=== PATIENT | female | born 1935 | race Caucasian/White ===

== ENCOUNTER 2017-08-08 10:54 | Inpatient (IN) | payer OTHER, BC ==
[~2017-08-08] VITALS: Ht 160 cm; Wt 100.8 kg
[~2017-08-08 10:54] MED LIST: CALCIUM500 M4 PO; CATAPRES0.1 MG PO; CENTRUM SILVER1 EAC4 PO; COUMADIN PO; Calan SR,Covera HS,I PO; Coumadin dosing per PO; DYAZIDE, MA1 CAPSULE PO; Dyazide, Maxzide 37. PO; ENDOCET 5-3251 EACH PO; FISH OIL 1,0001 EACH PO; FISH OIL 1,2001 EAC4 PO; OSTEO BI-FLEX1 EAC1 PO; Oyst-Cal D, Oscal W/ PO; PEPCID40 MG PO; PROTONIX40 MG PO; SENOKOT S,PE1 TABLET PO; Tylenol Regular Stre PO; VERAPAMIL HCL240 MG PO; XARELTO20 MG PO; ZOFRAN ODT4 MG PO
[2017-08-08 11:21] LABS: BASOPHIL (%) 0.2 % (0-1); EOSINOPHIL (%) 0.3 % (0-5); EOSINOPHIL COUNT 0.1 K/uL (0-0.3); HEMOGLOBIN 13.7 G/DL (11.9-15.5); IMMATURE GRANULOCYTE (%) 0.3 % (0.0-0.7); LYMPHOCYTE (%) 6.5 % (15-42); LYMPHOCYTE COUNT 1.1 K/uL (1.0-2.8); MCH 28.9 PG (29.0-34.0); MCHC 31.9 G/DL (30.0-36.0); MCV 90.7 FL (83-99); MONOCYTE (%) 5.2 % (3-12); MONOCYTE COUNT 0.9 K/uL (0-0.8); NEUTROPHIL (%) 87.5 % (45-76); PLATELET COUNT 269 K/uL (156-360); RBC DIS.WIDTH-CV 15.2 % (11.8-14.6); RBC DIS.WIDTH-SD 50.7 % (39-53); RED BLOOD COUNT 4.74 M/uL (3.80-5.20); WHITE BLOOD COUNT 17.2 K/uL (4.1-10.2)
[2017-08-08 11:26] LABS: INTER. NORMALIZED RATIO 1.3
[2017-08-08 11:53] LABS: TROP-I INTERPRETATION NEGATIVE
[2017-08-08 11:55] LABS: ALBUMIN 4.2 G/DL (3.2-4.8); ALKALINE PHOSPHATASE 64 IU/L (3-129); ALT (GPT) 23 IU/L (3-49); AST (GOT) 33 IU/L (2-34); CHLORIDE 105 MEQ/L (99-109); CREATININE 0.9 MG/DL (0.6-1.3); GFR ESTIMATE (CALCULATED) > 59 mL/min/; GLUCOSE 141 mg/dL (70-99); MAGNESIUM 1.9 mg/dl (1.3-2.7); POTASSIUM 4.1 MEQ/L (3.7-5.4); SODIUM 142 MEQ/L (136-147); TOTAL BILIRUBIN 1.2 MG/DL (0.0-1.0); UREA NITROGEN (BUN) 16 mg/dL (9-23)
[2017-08-08] MEDS ORDERED: DILTIAZEM 24HR360 M1 PO (13:12)
[2017-08-08] MEDS ORDERED: CARDIZEM60 MG PO (13:13)
[2017-08-08] MEDS ORDERED: LASIX20 MG PO (13:14)
[2017-08-08 14:55] VITALS: BP 138/80
[2017-08-08 16:57] VITALS: BP 148/97
[2017-08-08 18:07] LABS: TROP-I INTERPRETATION NEGATIVE; TROPONIN-I 0.13 ng/mL (0.0-0.30)
[2017-08-08 19:00] VITALS: BP 149/92
[2017-08-08 23:00] VITALS: BP 127/92
[2017-08-09] VITALS (7 sets, daily range): BP systolic 123–175; BP diastolic 62–93
[2017-08-09 05:22] LABS: HEMATOCRIT 33.8 % (36.0-46.0); MCH 29.6 PG (29.0-34.0); MCHC 32.8 G/DL (30.0-36.0); MCV 90.1 FL (83-99); RBC DIS.WIDTH-CV 15.4 % (11.8-14.6); RBC DIS.WIDTH-SD 51.2 % (39-53)
[2017-08-09 05:23] LABS: HEMOGLOBIN 11.1 G/DL (11.9-15.5); RED BLOOD COUNT 3.75 M/uL (3.80-5.20)
[2017-08-09 05:24] LABS: BASOPHIL (%) 0.2 % (0-1); EOSINOPHIL (%) 0.4 % (0-5); EOSINOPHIL COUNT 0.1 K/uL (0-0.3); IMMATURE GRANULOCYTE (%) 0.6 % (0.0-0.7); LYMPHOCYTE COUNT 0.8 K/uL (1.0-2.8); MONOCYTE (%) 5.9 % (3-12); MONOCYTE COUNT 0.8 K/uL (0-0.8); NEUTROPHIL (%) 86.9 % (45-76); NEUTROPHIL COUNT 12.1 K/uL (1.8-6.4)
[2017-08-09 06:09] LABS: CHLORIDE 107 MEQ/L (99-109); CREATININE 0.9 MG/DL (0.6-1.3); GFR ESTIMATE (CALCULATED) > 59 mL/min/; GLUCOSE 114 mg/dL (70-99); POTASSIUM 3.3 MEQ/L (3.7-5.4); SODIUM 145 MEQ/L (136-147); UREA NITROGEN (BUN) 16 mg/dL (9-23)
[2017-08-09 06:38] LABS: PLATELET CLUMPS PRESENT - PLATELET COUNT APPEARS ADQ.; PLATELET COUNT UNABLE TO REPORT K/uL (156-360)
[2017-08-09 08:37] LABS: TROP-I INTERPRETATION NEGATIVE; TROPONIN-I 0.15 ng/mL (0.0-0.30)
[2017-08-10 03:00] VITALS: BP 168/78
[2017-08-10 03:30] VITALS: BP 169/78
[2017-08-10 08:50] LABS: THYROTROPIN (TSH) 2.5 MIU/L (0.4-5.5)
[2017-08-10 08:56] VITALS: BP 162/78
[2017-08-10 09:32] LABS: HEMOGLOBIN 11.4 G/DL (11.9-15.5); MCH 28.6 PG (29.0-34.0); MCHC 30.8 G/DL (30.0-36.0); RBC DIS.WIDTH-CV 15.3 % (11.8-14.6); RBC DIS.WIDTH-SD 52.2 % (39-53); RED BLOOD COUNT 3.98 M/uL (3.80-5.20); WHITE BLOOD COUNT 9.6 K/uL (4.1-10.2)
[2017-08-10 10:06] LABS: CHLORIDE 105 MEQ/L (99-109); CREATININE 0.8 MG/DL (0.6-1.3); GFR ESTIMATE (CALCULATED) > 59 mL/min/; GLUCOSE 151 mg/dL (70-99); SODIUM 142 MEQ/L (136-147); UREA NITROGEN (BUN) 17 mg/dL (9-23)
[2017-08-10 10:17] LABS: PLATELET COUNT 207 K/uL (156-360)
[2017-08-10 12:27] VITALS: BP 141/79
[2017-08-10 15:25] VITALS: BP 141/87
[2017-08-10 21:35] VITALS: BP 161/84
[2017-08-11 00:55] VITALS: BP 129/75
[2017-08-11 04:00] VITALS: BP 131/65
[2017-08-11 05:16] LABS: HEMATOCRIT 34.4 % (36.0-46.0); HEMOGLOBIN 10.7 G/DL (11.9-15.5); MCH 28.2 PG (29.0-34.0); MCHC 31.1 G/DL (30.0-36.0); MCV 90.8 FL (83-99); PLATELET COUNT 208 K/uL (156-360); RBC DIS.WIDTH-CV 14.9 % (11.8-14.6); RBC DIS.WIDTH-SD 49.8 % (39-53); RED BLOOD COUNT 3.79 M/uL (3.80-5.20); WHITE BLOOD COUNT 8.4 K/uL (4.1-10.2)
[2017-08-11 06:02] LABS: CHLORIDE 106 MEQ/L (99-109); CREATININE 0.8 MG/DL (0.6-1.3); GFR ESTIMATE (CALCULATED) > 59 mL/min/; POTASSIUM 3.7 MEQ/L (3.7-5.4); SODIUM 141 MEQ/L (136-147); UREA NITROGEN (BUN) 17 mg/dL (9-23)
[2017-08-11 06:03] LABS: GLUCOSE 106 mg/dL (70-99)
[2017-08-11 09:12] VITALS: BP 148/63
[2017-08-11 11:00] VITALS: BP 148/82
[2017-08-11 17:37] VITALS: BP 152/78
[2017-08-11 20:05] VITALS: BP 142/72
[2017-08-12 01:31] VITALS: BP 138/76
[2017-08-12 04:20] VITALS: BP 139/73
[2017-08-12 05:08] LABS: HEMATOCRIT 33.8 % (36.0-46.0); HEMOGLOBIN 10.6 G/DL (11.9-15.5); MCH 28.3 PG (29.0-34.0); MCHC 31.4 G/DL (30.0-36.0); MCV 90.1 FL (83-99); PLATELET COUNT 225 K/uL (156-360); RBC DIS.WIDTH-CV 14.7 % (11.8-14.6); RBC DIS.WIDTH-SD 48.7 % (39-53); RED BLOOD COUNT 3.75 M/uL (3.80-5.20); WHITE BLOOD COUNT 6.3 K/uL (4.1-10.2)
[2017-08-12 05:35] LABS: CHLORIDE 105 MEQ/L (99-109); CREATININE 0.9 MG/DL (0.6-1.3); GFR ESTIMATE (CALCULATED) > 59 mL/min/; GLUCOSE 108 mg/dL (70-99); POTASSIUM 3.4 MEQ/L (3.7-5.4); SODIUM 142 MEQ/L (136-147); UREA NITROGEN (BUN) 14 mg/dL (9-23)
[2017-08-12 07:52] VITALS: BP 147/78
[2017-08-12 11:49] VITALS: BP 147/80
[2017-08-12 15:01] LABS: TYPE OF FLUID PLEURAL
[2017-08-12] MEDS ORDERED: CEFPODOXIME PR200 MG PO (15:47)
[2017-08-12 15:48] LABS: APPEARANCE CLEAR-YELLOW; BODY FLUID EOSINOPHILS 0 % (0-25); BODY FLUID RBC'S 1000 /MM^3 (0-100); BODY FLUID WBC'S 668 /MM^3 (0-500); MONONUCLEAR WBC'S 64 %; POLYNUCLEAR WBC'S 36 % (0-25)
[2017-08-12] MEDS ORDERED: DOXYCYCLINE HY100 MG PO (15:48)
[2017-08-12] MEDS ORDERED: LACTOBACILLUS1 EACH PO (15:49)
[2017-08-12] MEDS ORDERED: FUROSEMIDE40 MG PO (15:50)
[2017-08-12] MEDS ORDERED: K-DUR20 MEQ PO (15:50)
[2017-08-12] MEDS ORDERED: BENZONATATE100 MG PO (15:50)
[2017-08-12] MEDS ORDERED: ZESTRIL2.5 MG PO (15:51)
== END 2017-08-12 17:36 | disposition home or self-care (01) | DRG 193 ==
LOC: EME 10:54 → EDOF 13:26 → 4EAST 13:26 → ENRESERV 13:27 → EDOF 14:06 → 4EAST 15:08
PROVIDERS: Emergency Medicine; Internal Medicine
PROC: 0W993ZX Drainage of Right Pleural Cavity, Percutaneous Approach, Diagnostic (ICD-10-PCS; principal; 2017-08-12)
DX: J18.9 Pneumonia, unspecified organism (principal); J96.01 Acute respiratory failure with hypoxia; J98.11 Atelectasis; I50.32 Chronic diastolic (congestive) heart failure; Z68.41 Body mass index [BMI] 40.0-44.9, adult; J90 Pleural effusion, not elsewhere classified; I48.1 Persistent atrial fibrillation; I48.0 Paroxysmal atrial fibrillation; I48.2 Chronic atrial fibrillation; K21.9 Gastro-esophageal reflux disease without esophagitis; I27.20 Pulmonary hypertension, unspecified; I11.0 Hypertensive heart disease with heart failure; G47.30 Sleep apnea, unspecified; Z96.651 Presence of right artificial knee joint; M19.90 Unspecified osteoarthritis, unspecified site; K52.9 Noninfective gastroenteritis and colitis, unspecified; J98.01 Acute bronchospasm; E87.6 Hypokalemia; Z60.2 Problems related to living alone; E66.9 Obesity, unspecified; Z79.01 Long term (current) use of anticoagulants; Z90.710 Acquired absence of both cervix and uterus; Z82.49 Family history of ischemic heart disease and other diseases of the circulatory system; Z90.49 Acquired absence of other specified parts of digestive tract; Z82.3 Family history of stroke
CPT/HCPCS: 71045; 71275; 76942; 80048; 80053; 82948; 83605; 83735; 83880; 84439; 84443; 84484; 85025; 85027; 85610; 85730; 87040; 87070; 87075; 87205; 87449; 87502; 87641; 88108; 89051; 92610 GN; 93005; 94640; 94640 76; 94799; 99202; 99281; 99285; J0456; J0696; J1940; J2543; J3370; J7030

== ENCOUNTER 2017-09-21 19:40 | Emergency (ER) | payer OTHER, BC ==
[~2017-09-21] VITALS: Ht 160 cm; Wt 96.1 kg
[~2017-09-21 19:40] MED LIST changes: +BENZONATATE100 MG PO; +CARDIZEM60 MG PO; +CEFPODOXIME PR200 MG PO; +DILTIAZEM 24HR360 M1 PO; +DOXYCYCLINE HY100 MG PO; +FUROSEMIDE40 MG PO; +K-DUR20 MEQ PO; +LACTOBACILLUS1 EACH PO; +LASIX20 MG PO; +ZESTRIL2.5 MG PO
[2017-09-21 21:20] LABS: HEMATOCRIT 24.2 % (36.0-46.0); HEMOGLOBIN 7.7 G/DL (11.9-15.5); MCH 29.3 PG (29.0-34.0); MCHC 31.8 G/DL (30.0-36.0); PLATELET COUNT 257 K/uL (156-360); RBC DIS.WIDTH-SD 47.7 % (39-53); RED BLOOD COUNT 2.63 M/uL (3.80-5.20)
[2017-09-21 21:30] LABS: CHLORIDE 110 mEq/L (99-109); POTASSIUM 4.4 mEq/L (3.7-5.4); SODIUM 143 mEq/L (136-147)
[2017-09-21 21:31] LABS: GLUCOSE 139 mg/dL (70-99)
[2017-09-21 21:35] LABS: CREATININE 1.4 mg/dL (0.6-1.3); GFR ESTIMATE (CALCULATED) 38 mL/min/
[2017-09-21 21:36] LABS: UREA NITROGEN (BUN) 33 mg/dL (9-23)
[2017-09-21] MEDS ORDERED: DILTIAZEM 24HR240 MG PO (22:33)
[2017-09-21 22:34] LABS: INTER. NORMALIZED RATIO 1.9
[2017-09-21] MEDS ORDERED: ZESTRIL2.5 MG PO (22:34)
[2017-09-21] MEDS ORDERED: LASIX40 MG PO (22:34)
[2017-09-21] MEDS ORDERED: ALIGN4 MG PO (22:35)
[2017-09-21] MEDS ORDERED: ALEVE220 MG PO (22:36)
[2017-09-21] MEDS ORDERED: ARTIFICIAL TEAR1510 BOTH EYES (22:37)
[2017-09-22 00:41] VITALS: BP 112/62
== END 2017-09-22 00:41 | disposition short-term general hospital (02) ==
LOC: EME 19:40
PROVIDERS: Emergency Medicine
DX: I72.4 Aneurysm of artery of lower extremity (principal); D64.9 Anemia, unspecified; Z98.890 Other specified postprocedural states
CPT/HCPCS: 80048; 85027; 85610; 86850; 86900; 86901; 86920; 93971; 99281; 99285; J2270; J7030